=== PATIENT | female | born 1995 | race Caucasian/White ===

== ENCOUNTER 2017-02-28 12:42 | Emergency (ER) | payer OTHER ==
[~2017-02-28] VITALS: Ht 162.6 cm; Wt 63.6 kg
[~2017-02-28 12:42] MED LIST: NORG7TAB PO
[2017-02-28] MEDS ORDERED: LORazepam 1 MG TABLET PO ONE (14:30)
[2017-02-28 15:22] VITALS: BP 123/80
== END 2017-02-28 15:34 | disposition home or self-care (01) ==
LOC: EMS 12:44
DX: F41.9 Anxiety disorder, unspecified (principal); R03.0 Elevated blood-pressure reading, without diagnosis of hypertension
CPT/HCPCS: 99284

== ENCOUNTER 2020-01-21 12:36 | Emergency (ER) | payer OTHER ==
[~2020-01-21] VITALS: Ht 165.1 cm; Wt 70.5 kg
[2020-01-21 12:37] VITALS: BP 115/75
== END 2020-01-21 15:05 | disposition home or self-care (01) ==
LOC: EMS 12:37
DX: L88 Pyoderma gangrenosum (principal); F41.9 Anxiety disorder, unspecified